=== PATIENT | male | born 1985 | race Caucasian/White ===

== ENCOUNTER 2016-08-11 12:46 | Emergency (ER) | payer OTHER ==
[~2016-08-11] VITALS: Ht 185.4 cm; Wt 77.1 kg
[2016-08-11 14:04] LABS: BASO # 0.1 x10^3/uL (0.0-0.2); BASO % 0 % (0-3); EOS % 0 % (0-3); HEMATOCRIT 48.9 % (39.0-53.0); HEMOGLOBIN 16.4 g/dL (13.0-17.5); LYMPH # 0.5 x10^3/uL (1.0-4.8); LYMPH % 3 % (24-48); MEAN CORPUSCULAR HEMOGLOBIN 31 pg (25-35); MEAN CORPUSCULAR HGB CONC 34 g/dL (31-37); MEAN CORPUSCULAR VOLUME 91 fL (79-100); MONO % 5 % (0-9); NEUT % 92 % (31-73); PLATELET COUNT 286 x10^3/uL (140-400); RED BLOOD COUNT 5.35 x10^6/uL (4.30-5.70); RED CELL DISTRIBUTION WIDTH 12.4 % (11.5-14.5); WHITE BLOOD COUNT 17.4 x10^3/uL (4.0-11.0)
[2016-08-11] MEDS ORDERED: ONDANSETRON PF 4 MG/2 ML VIAL. IV ONE (14:15)
[2016-08-11] MEDS ORDERED: IV NORMAL SALINE 1000ML BAG 1,000 ML IV ONE (14:15)
[2016-08-11 14:16] LABS: CALCIUM 9.5 mg/dL (8.5-10.1); CREATININE 1.1 mg/dL (0.7-1.3); GFR 77.1; POTASSIUM 3.8 mmol/L (3.5-5.1)
[2016-08-11 14:25] LABS: BILIRUBIN,URINE SMALL (NEG); GLUCOSE,URINE NEGATIVE (NEG); NITRITE,URINE NEGATIVE (NEG); PH,URINE 5.5; PROTEIN,URINE 30 mg/dL (NEG-TRACE); UROBILINOGEN,URINE 0.2 mg/dL (0.2 mg/dL)
[2016-08-11 14:44] LABS: BACTERIA,URINE 0 /HPF (0-FEW); RBC,URINE 0 /HPF (0-2); WBC,URINE 0 /HPF (0-4)
[2016-08-11] MEDS ORDERED: FENTANYL PF 100 MCG/2 ML VIAL. IV ONE (14:45)
[2016-08-11 15:24] LABS: PLT ESTIMATE ADEQUATE (ADEQUATE); TOXIC GRANULATION SLIGHT
--- NOTE | 2016-08-11 15:46 | RAD ---
CT of the abdomen and pelvis with out contrast, 08/11/2016: History: Abdominal pain and vomiting Noncontrast scans were obtained through the urinary tract utilizing the renal stone protocol. No intrarenal calculi are identified. The renal collecting systems and ureters are not dilated. No ureteral calculus is evident. Several bilateral pelvic calcifications are probably phleboliths. The bladder is unremarkable. The liver is enlarged and of diffusely lower than normal density compatible with hepatic steatosis. No hepatic mass is identified. The gallbladder is unremarkable. No pancreatic abnormality is seen. The spleen is within normal limits in size measuring 12.6 cm in length. The abdominal aorta is unremarkable. No abdominal or pelvic adenopathy is seen. The bowel loops are not dilated. The appendix is not clearly visualized. No dilated appendix or pericecal inflammatory process is seen. No free fluid or free air is evident in the abdomen or pelvis. IMPRESSION: 1. No urinary tract calculi are identified. 2. Hepatic steatosis. PQRS Compliance Statement: One or more of the following individualized dose reduction techniques were utilized for this examination: 1. Automated exposure control 2. Adjustment of the mA and/or kV according to patient size 3. Use of iterative reconstruction technique
[2016-08-11] MEDS ORDERED: IBUP-1060 PO (16:07)
[2016-08-11] MEDS ORDERED: CYCL10TA2 PO (16:07)
--- NOTE | 2016-08-11 16:08 | PHYS DOC ---
Past Medical History Past Medical History: No Pertinent History Past Surgical History: No Surgical History Alcohol Use: Heavy Additional Information: DAILY VODKA INTAKE Drug Use: None Adult General Chief Complaint Chief Complaint: ABDOMINAL PAIN HPI HPI This otherwise healthy 30-year-old male who awoke today with significant lower back pain in the bilateral lumbar region. He denies any recent trauma or strenuous activities that he can remember for his symptoms. He denies any dysuria or hematuria. He denies any fever or chills. He denies any abdominal pain. He states he is otherwise healthy and does not have any significant problems. He rates his pain an 8 out of 10 on the pain scale. He states he had several alcoholic beverages last evening but nothing significant. Eyes any illicit drug use or smoking history. Review of Systems Review of Systems Constitutional: Denies fever or chills [] Eyes: Denies change in visual acuity, redness, or eye pain [] HENT: Denies nasal congestion or sore throat [] Respiratory: Denies cough or shortness of breath [] Cardiovascular: No additional information not addressed in HPI [] GI: Denies abdominal pain, nausea, vomiting, bloody stools or diarrhea [] : Denies dysuria or hematuria [] Musculoskeletal: Denies back pain or joint pain [] Integument: Denies rash or skin lesions [] Neurologic: Denies headache, focal weakness or sensory changes [] Endocrine: Denies polyuria or polydipsia [] Current Medications Current Medications Current Medications Medications (Trade) Dose Ordered Sig/[facility] Start Time Stop Time Status Last Admin Dose Admin Fentanyl Citrate (Fentanyl 2ml Vial) 50 mcg 1X ONCE 08/11/16 14:45 08/11/16 14:46 DC 08/11/16 14:40 50 MCG Ondansetron HCl (Zofran) 4 mg 1X ONCE 08/11/16 14:15 08/11/16 14:17 DC 08/11/16 14:19 4 MG Sodium Chloride (Iv Sodium Chloride 0.9% 1000ml Bag) 1,000 ml @ 1,000 mls/hr 1X ONCE 08/11/16 14:15 08/11/16 17:10 DC 08/11/16 14:19 1,000 MLS/HR Allergies Allergies Allergies Coded Allergies Type Severity Reaction Last Updated Verified No Known Drug Allergies 08/11/16 No Physical Exam Physical Exam Constitutional: Well developed, well nourished, no acute distress, non-toxic appearance. [] HENT: Normocephalic, atraumatic, bilateral external ears normal, oropharynx moist, no oral exudates, nose normal. [] Eyes: PERRLA, EOMI, conjunctiva normal, no discharge. [] Neck: Normal range of motion, no tenderness, supple, no stridor. [] Cardiovascular:Heart rate regular rhythm, no murmur [] Lungs & Thorax: Bilateral breath sounds clear to auscultation [] Abdomen: Bowel sounds normal, soft, no tenderness, no masses, no pulsatile masses. [] Skin: Warm, dry, no erythema, no rash. [] Back: Moderate lumbar tenderness bilaterally, mild CVA tenderness, no obvious stepoff or deformity. [] Extremities: No tenderness, no cyanosis, no clubbing, ROM intact, no edema. [] Neurologic: Alert and oriented X 3, normal motor function, normal sensory function, no focal deficits noted. [] Psychologic: Affect normal, judgement normal, mood normal. [] Current Patient Data Vital Signs Vital Signs Date Time Temp Pulse Resp B/P Pulse Ox O2 Delivery O2 Flow Rate FiO2 08/11/16 16:15 80 22 140/72 100 Room Air 08/11/16 13:18 98.1 98.1 Lab Values Laboratory Tests Test 08/11/16 13:00 08/11/16 13:20 Urine Collection Type Unknown Urine Color Dk yellow Urine Clarity Clear Urine pH 5.5 Urine Specific [place] >=1.030 Urine Protein 30mg/dL (NEG-TRACE) Urine Glucose (UA) Negativemg/dL (NEG) Urine Ketones (Stick) 40mg/dL (NEG) Urine Blood Negative (NEG) Urine Nitrite Negative (NEG) Urine Bilirubin Small (NEG) Urine Urobilinogen Dipstick 0.2mg/dL (0.2 mg/dL) Urine Leukocyte Esterase Negative (NEG) Urine RBC 0/HPF (0-2) Urine WBC 0/HPF (0-4) Urine Squamous Epithelial Cells None/LPF Urine Bacteria 0/HPF (0-FEW) Urine Hyaline Casts Occasional/HPF Urine Mucus Marked/LPF White Blood Count 17.4x10^3/uL (4.0-11.0) H Red Blood Count 5.35x10^6/uL (4.30-5.70) Hemoglobin 16.4g/dL (13.0-17.5) Hematocrit 48.9% (39.0-53.0) Mean Corpuscular Volume 91fL (79-100) Mean Corpuscular Hemoglobin 31pg (25-35) Mean Corpuscular Hemoglobin Concent 34g/dL (31-37) Red Cell Distribution Width 12.4% (11.5-14.5) Platelet Count 286x10^3/uL (140-400) Neutrophils (%) (Auto) 92% (31-73) H Lymphocytes (%) (Auto) 3% (24-48) L Monocytes (%) (Auto) 5% (0-9) Eosinophils (%) (Auto) 0% (0-3) Basophils (%) (Auto) 0% (0-3) Neutrophils # (Auto) 16.0x10^3uL (1.8-7.7) H Lymphocytes # (Auto) 0.5x10^3/uL (1.0-4.8) L Monocytes # (Auto) 0.9x10^3/uL (0.0-1.1) Eosinophils # (Auto) 0.0x10^3/uL (0.0-0.7) Basophils # (Auto) 0.1x10^3/uL (0.0-0.2) Segmented Neutrophils % 85% (35-66) H Band Neutrophils % 9% (0-9) Lymphocytes % 6% (24-48) L Toxic Granulation Slight Platelet Estimate Adequate (ADEQUATE) Sodium Level 136mmol/L (136-145) Potassium Level 3.8mmol/L (3.5-5.1) Chloride Level 102mmol/L (98-107) Carbon Dioxide Level 18mmol/L (21-32) L Anion Gap 16 (6-14) H Blood Urea Nitrogen 21mg/dL (8-26) Creatinine 1.1mg/dL (0.7-1.3) Estimated GFR (Cockcroft-Gault) 77.1 Glucose Level 96mg/dL (70-99) Calcium Level 9.5mg/dL (8.5-10.1) Lipase 90U/L (73-393) Laboratory Tests 08/11/16 13:20 Laboratory Tests 08/11/16 13:20 EKG EKG [] Radiology/Procedures Radiology/Procedures CT of the abdomen/pelvis without contrast demonstrates the following: History: Abdominal pain and vomiting Noncontrast scans were obtained through the urinary tract utilizing the renal stone protocol. No intrarenal calculi are identified. The renal collecting systems and ureters are not dilated. No ureteral calculus is evident. Several bilateral pelvic calcifications are probably phleboliths. The bladder is unremarkable. The liver is enlarged and of diffusely lower than normal density compatible with hepatic steatosis. No hepatic mass is identified. The gallbladder is unremarkable. No pancreatic abnormality is seen. The spleen is within normal limits in size measuring 12.6 cm in length. The abdominal aorta is unremarkable. No abdominal or pelvic adenopathy is seen. The bowel loops are not dilated. The appendix is not clearly visualized. No dilated appendix or pericecal inflammatory process is seen. No free fluid or free air is evident in the abdomen or pelvis. Course & Med Decision Making Course & Med Decision Making Pertinent Labs and Imaging studies reviewed. (See chart for details) This otherwise healthy 31-year-old male has a laboratory workup that is essentially unremarkable. Due to his abdomen and pelvis without contrast did not denies any acute abnormality. Patient is given a dose of pain control and felt moderately improved. In light of the fact that his laboratory workup and CT scan are negative, his symptoms are likely musculoskeletal in etiology. I counseled the patient at length that he is to take a course of muscle relaxants and anti-inflammatories and to use heat to the affected area and to avoid any stress activities. Patient is very agreeable with this plan and will follow closely with his primary care doctor for symptom resolution with strict instructions to return if his pain should worsen or if he develops any new symptoms such as chest pain or shortness of breath or fever or chills. Dragon Disclaimer Dragon Disclaimer This electronic medical record was generated, in whole or in part, using a voice recognition dictation system. Departure Departure Impression: Primary Impression: Back pain Disposition: 01 HOME, SELF-CARE Admitting Physician: Other Condition: STABLE Referrals: UNKNOWN PCP NAME (PCP) Patient Instructions: Back Pain, Adult Additional Instructions: Please take your medications as prescribed. Avoid any strenuous activities and apply a heating pad to the affected area. Follow up closely with your primary doctor in 2 days. Return to the ER if you develop any worsening of your symptoms. Scripts Cyclobenzaprine Hcl 10 Mg [id number] Mg PO TID #15 TAB Prov:EJ DIXON DO 08/11/16 Ibuprofen 800 Mg [id number] Mg PO PRN Q6HRS PRN INFLAMMATION #20 TAB Prov:EJ DIXON DO 08/11/16 EJ DIXON DO Aug 11, 2016 16:07
[2016-08-11 16:15] VITALS: BP 140/72
== END 2016-08-11 16:24 | disposition home or self-care (01) ==
LOC: ER 12:46
DX: M54.5 Low back pain (principal); F10.10 Alcohol abuse, uncomplicated
CPT/HCPCS: 36415; 74176; 80048; 81001; 83690; 85007; 85027; 96361; 96374; 96375; 99285; J2405; J3010; J7030